=== PATIENT | female | born 1945 | race Caucasian/White ===

== ENCOUNTER → 2017-07-27 | Outpatient (CLI) | payer MEDICARE, OTHER | LOC: MC.RAD 09:39 | DX: Z12.31 Encounter for screening mammogram for malignant neoplasm of breast (principal) ==

== ENCOUNTER → 2018-08-05 | Outpatient (CLI) | payer MEDICARE, OTHER | LOC: MC.RAD 11:04 | DX: Z12.31 Encounter for screening mammogram for malignant neoplasm of breast (principal) ==

== ENCOUNTER → 2019-09-08 | Outpatient (CLI) | payer MEDICARE, OTHER | LOC: MC.RAD 10:32 | DX: Z12.31 Encounter for screening mammogram for malignant neoplasm of breast (principal) ==

== ENCOUNTER → 2020-09-10 | Outpatient (CLI) | payer MEDICARE | LOC: MC.RAD 09:38 | DX: Z12.31 Encounter for screening mammogram for malignant neoplasm of breast (principal) ==

== ENCOUNTER 2021-07-09 08:09 | Emergency (ER) | payer MEDICARE ==
[~2021-07-09] VITALS: Ht 167.6 cm; Wt 77.3 kg
[2021-07-09 08:14] VITALS: TEMP 99.1
[2021-07-09 08:46] LABS: COLLECTION METHOD CLEAN CATCH
[2021-07-09 08:53] LABS: HEMATOCRIT 40.2 % (37.0-47.0); HEMOGLOBIN 13.1 g/dl (12.5-16.0); MEAN CELL VOLUME 96 fl (80.0-100.0); MEAN CORPUSCULAR HEMOGLOBIN 31 pg (27.0-31.0); MEAN CORPUSCULAR HGB CONC 33 g/dl (33.0-37.0); PLATELET COUNT 243 K/mm3 (130-400); REDCELL DISTRIBUTION WIDTH-CV 12.7 % (11.5-14.5)
[2021-07-09 09:09] LABS: ALBUMIN 3.7 gm/dL (3.4-4.8); C-REACTIVE PROTEIN 2.97 mg/dL (0.00-0.50); CALCIUM 9.4 mg/dL (8.4-10.2); CREATININE, serum 0.8 mg/dL (0.57-1.11); POTASSIUM 3.8 mmol/L (3.5-4.5); TOTAL PROTEIN 6.4 gm/dL (6.2-8.1)
[2021-07-09 09:19] LABS: MUCOUS Present (NOT PRESENT); PH 5 (5-8); SQUAMOUS EPITHELIAL 0-2 /hpf (0-10); URINE APPEARANCE Clear (CLEAR/HAZY); URINE BACTERIA None Seen (NONE SEEN); URINE BILIRUBIN Negative (NEGATIVE); URINE BLOOD 1+ (NEGATIVE); URINE COLOR Amber (YELLOW); URINE GLUCOSE Negative (NEGATIVE); URINE KETONE Trace (NEGATIVE); URINE LEUKOCYTE ESTERASE Negative (NEGATIVE); URINE NITRATE Positive (NEGATIVE); URINE PROTEIN(semi-quant) Negative (NEGATIVE)
[2021-07-09] MEDS ORDERED: ZOFRAN ODT4 MG PO (09:36)
[2021-07-09] MEDS ORDERED: CEFTIN500 MG PO (09:36)
[2021-07-09 09:40] LABS: BAND 8 % (0-10); LYMPHOCYTE 1 % (20.0-51.0); NEUTROPHILS 89 % (42.0-75.2)
[2021-07-09 09:42] LABS: PLATELET ESTIMATE NORMAL (NORMAL)
[2021-07-09 09:49] LABS: BILIRUBIN,TOTAL 0.9 mg/dL (0.2-1.2)
[2021-07-09 10:32] VITALS: BP 138/82; PULSE 103
== END 2021-07-09 10:34 | disposition home or self-care (01) ==
LOC: COL.ER 08:09
PROVIDERS: Emergency Medicine
DX: N12 Tubulo-interstitial nephritis, not specified as acute or chronic (principal); D72.829 Elevated white blood cell count, unspecified; R79.82 Elevated C-reactive protein (CRP); I10 Essential (primary) hypertension
CPT/HCPCS: J0696; J1885; J2405; J7030

== ENCOUNTER → 2023-11-02 | Outpatient (CLI) | payer MEDICARE ==
[~2023-11-02] MED LIST: CEFTIN500 MG PO; ZOFRAN ODT4 MG PO
== END ==
LOC: MC.RAD 10:46
DX: Z12.31 Encounter for screening mammogram for malignant neoplasm of breast (principal)

== ENCOUNTER 2024-04-17 18:06 | Emergency (ER) | payer MEDICARE ==
[~2024-04-17] VITALS: Ht 167.6 cm; Wt 87.7 kg
[~2024-04-17 18:06] MED LIST changes: +ALDACTONE 25MG25 M1 PO; +ASPIRIN 81M81 MG/TA2 PO; +FIORICET 325 MG1 TA1 PO; +LIPITOR 40MG TA40 MG PO; +PLAVIX 75MG TAB75 MG PO; +TOPROL XL 25MG25 MG PO; +ZESTRIL 20MG TA20 MG PO
[2024-04-17 18:20] VITALS: TEMP 98.2
[2024-04-17 19:06] LABS: BASO % 0.5 % (0.0-2.0); EOS % 0.7 % (0.0-4.0); GRAN # 3.4 K/mm3 (1.4-6.5); GRAN % 60.8 % (42.2-75.2); HEMATOCRIT 42.6 % (37.0-47.0); HEMOGLOBIN 14.5 g/dl (12.5-16.0); LYMPH # 1.6 K/mm3 (1.2-3.4); LYMPH % 29.1 % (20.0-51.0); MEAN CELL VOLUME 93 fl (80.0-100.0); MEAN CORPUSCULAR HEMOGLOBIN 32 pg (27-31); MEAN CORPUSCULAR HGB CONC 34 g/dl (33.0-37.0); MEAN PLATELET VOLUME 9.7 fl (7.4-10.4); MONO # 0.5 K/mm3 (0.1-0.6); MONO % 8.7 % (1.7-9.3); PLATELET COUNT 272 K/mm3 (130-400); RED BLOOD COUNT 4.58 M/mm3 (4.10-5.30); REDCELL DISTRIBUTION WIDTH-CV 12.8 % (11.5-14.5)
[2024-04-17 19:17] LABS: PARTIAL THROMBOPLASTIN TIME 33.3 SECONDS (26.0-37.0)
[2024-04-17 19:23] LABS: ALANINE AMINOTRANSFERASE 24 U/L (0-55); ALBUMIN 3.9 g/dL (3.4-4.8); ALKALINE PHOSPHATASE 80 U/L (40-150); ANION GAP 14 mmol/L (7-16); AST,SGOT 19 U/L (5-34); BILIRUBIN,TOTAL 0.6 mg/dL (0.2-1.2); BLOOD UREA NITROGEN 10 mg/dL (10-20); CALCIUM 9.4 mg/dL (8.4-10.2); CHLORIDE 109 mEq/L (98-107); CREATININE, serum 0.78 mg/dL (0.57-1.11); GLUCOSE 113 mg/dL (70-99); MAGNESIUM 2.1 mg/dL (1.6-2.6); POTASSIUM 3.6 mEq/L (3.5-4.5); SODIUM 142 mEq/L (136-145); TOTAL PROTEIN 6.7 g/dl (6.2-8.1)
[2024-04-17 19:39] LABS: TROPONIN-I < 0.010 ng/mL (0.00-0.033)
[2024-04-17] MEDS ORDERED: Iohexol 300 - 100 ML VIAL IV ONE (19:43)
[2024-04-17] MEDS ORDERED: NS 50 ML IV ONE (19:44)
[2024-04-17] MEDS ORDERED: Lisinopril 20 MG TAB PO ONE (20:45)
[2024-04-17 22:20] VITALS: BP 187/94; PULSE 66
== END 2024-04-17 22:20 | disposition home or self-care (01) ==
LOC: COL.ER 18:06
PROVIDERS: Family Medicine
DX: I10 Essential (primary) hypertension (principal); R10.13 Epigastric pain; Z79.02 Long term (current) use of antithrombotics/antiplatelets
CPT/HCPCS: Q9967

== ENCOUNTER 2024-05-06 09:23 | Inpatient (IN) | payer MEDICARE ==
[~2024-05-06] VITALS: Ht 167.6 cm; Wt 81.5 kg
[2024-05-06] VITALS (492 sets, daily range): BP systolic 104–145; BP diastolic 61–94; PULSE 68–80; TEMP 97.7–97.8; O2SAT 85–99
[2024-05-06 09:56] LABS: BASO % 0.3 % (0.0-2.0); EOS % 0.7 % (0.0-4.0); GRAN # 4.3 K/mm3 (1.4-6.5); GRAN % 71.7 % (42.2-75.2); HEMOGLOBIN 15.2 g/dl (12.5-16.0); LYMPH # 1.2 K/mm3 (1.2-3.4); LYMPH % 19.3 % (20.0-51.0); MEAN CELL VOLUME 96 fl (80.0-100.0); MEAN CORPUSCULAR HEMOGLOBIN 32 pg (27-31); MEAN CORPUSCULAR HGB CONC 33 g/dl (33.0-37.0); MEAN PLATELET VOLUME 10.1 fl (7.4-10.4); MONO # 0.5 K/mm3 (0.1-0.6); MONO % 7.8 % (1.7-9.3); PLATELET COUNT 285 K/mm3 (130-400); REDCELL DISTRIBUTION WIDTH-CV 12.9 % (11.5-14.5)
[2024-05-06] MEDS ORDERED: dilTIAZem 25 MG/5 ML VIAL IV ONE (10:00)
[2024-05-06 10:01] LABS: PROTHROMBIN TIME 11.2 SECONDS (9.7-12.8)
[2024-05-06 10:04] LABS: PARTIAL THROMBOPLASTIN TIME 33.2 SECONDS (26.0-37.0)
[2024-05-06 10:07] LABS: ALBUMIN 3.6 g/dL (3.4-4.8); BILIRUBIN,TOTAL 0.6 mg/dL (0.2-1.2); CALCIUM 9.2 mg/dL (8.4-10.2); CREATININE, serum 0.84 mg/dL (0.57-1.11); POTASSIUM 3.7 mEq/L (3.5-4.5); TOTAL PROTEIN 6.3 g/dl (6.2-8.1)
[2024-05-06 10:13] LABS: TROPONIN-I 0.01 ng/mL (0.00-0.033)
[2024-05-06] MEDS ORDERED: ZESTRIL 10MG10 MG PO (14:34)
[2024-05-06] MEDS ORDERED: NORVASC 5MG5 MG/TAB PO (14:35)
[2024-05-06] MEDS ORDERED: XALATAN EYE DROPS OU (14:36)
[2024-05-06] MEDS ORDERED: Acetamin/Butalbital/Caffeine 325-50-40 MG TAB PO PRN (14:45)
--- NOTE | 2024-05-06 14:46 | NUR ---
Pt arrived to the floor and transferred via stretcher to bathroom then back to bed. Gait is stable. Assessment completed. Pt deines any pain or SOB. Pt oriented to room. Pt and pt updated on ICU policies. Both verbalized understanding. Dr. Coughlin paged and updated about pt. No new orders. Pt has cardizem infusing at 5mg/hr. HR is controlled in the 70s. Pt denies any other needs at this time. Call light within reach. Will continue with POC.
--- NOTE | 2024-05-06 19:05 | NUR ---
THIS NURSE RECIEVED REPORT FROM PRASHANTH MERCADO. PATIENT IS CURRENTLY WATCHING TV IN BED, WITH AT BEDSIDE. VITAL SIGNS WNL. 20 G TO THE RIGHT AC WITH CARDIZEM RUNNING AT 5 ML/HR. PATIENT STATED NO CONCERNS AT THIS POINT. BED IS IN LOW POSITION. CALL LIGHT IS IN THE PATIENT'S REACH.
[2024-05-06] MEDS ORDERED: Latanoprost 0.005% Ophth Soln 2.5 ML BOTTLE OP SCH (21:00)
[2024-05-06] MEDS ORDERED: Atorvastatin 40 MG TAB PO SCH (21:00)
[2024-05-06] MEDS ORDERED: amLODIPine 5 MG TAB PO SCH (21:00)
[2024-05-07] VITALS (1031 sets, daily range): BP systolic 95–123; BP diastolic 54–98; PULSE 62–112; TEMP 97.6–98.1; O2SAT 63–99
--- NOTE | 2024-05-07 01:21 | NUR ---
PATIENT HAS BEEN HAVING SOFT PRESSURES, AROUND 90'S OVER 50'S. PATIENT HAS STAYED RATE CONTROLLED WITH A HEARTRATE BETWEEN 60-70'S. I TITRATED THE CARDIZEM RUNNING, DOWN, TO 0 MG/HR AT THIS TIME. WILL CONTINUE TO ASSESS THE PATIENT AND MONITOR VITAL SIGNS. BED IN LOW POSITION, CALL LIGHT WITHIN THE PATIENT'S REACH.
--- NOTE | 2024-05-07 04:12 | NUR ---
PATIENT STILL OFF OF CARDIZEM DRIP. PATIENT MAINTAINING A RATE CONTROLLED HEART RATE OF AROUND 60-70'S. PATIENT'S BLOOD PRESSURE HAS WENT UP TOO 100'S OVER 60'S. PATIENT STILL SLEEPING COMFORTABLY. NO OTHER CONCERNS NOTED AT THIS TIME. BED IN LOW POSITION AND CALL LIGHT WITHIN REACH.
--- NOTE | 2024-05-07 08:48 | NUR ---
PATIENT A&OX4 AND HAS A PLEASANT DEMEANOR. PATIENT HAD INT IN R AC THAT HAD PREVIOUSLY BEEN RUNNING CARDIZEM BUT WAS NO LONGER. THE SITE WAS BLEEING AND MAKING THE PATIENT UNCOMFORTABLE. DC'D R AC SITE AND STARTED A NEW INT IN RH W/ 22 GAUGE CATHETER IN ONE ATTEMPT. PATIENT HAS NO C/O OF PAIN IN THE AREA DURING OR AFTER THE INITIATION. CARIDIZEM DRIP TURNED BACK ON D/T HEART RATE AND RHYTHM BEING ABNORMAL. NORMAL S1 AND S2 AUSCULTATED, WITH EXTRA SOUNDS INBETWEEN S1 AND S2. PATIENT REMAINS IN AFIB, BUT IS CURRENTLY RATE CONTROLLED. PATIENT UP TO THE RESTROOM, GAIT WAS STEADY, HAS NO C/O DIZZINESS UPON STANDING AND AMBULATING. PATIENT IS BACK TO BED WITH CALL LIGHT IN REACH AND BED IN LOWEST POSITION
[2024-05-07] MEDS ORDERED: Lisinopril 10 MG TAB PO SCH (09:00)
[2024-05-07] MEDS ORDERED: *Potassium Replacement Protocol MC SCH (09:45)
[2024-05-07] MEDS ORDERED: Potassium Bicarbonate/Citrate 20 MEQ Effervescent TAB PO SCH (10:00)
--- NOTE | 2024-05-07 11:00 | NUR ---
SW met with patient to complete intake/discharge planning. Patient provides she resides in [facility] with her spouse Tadeo Asencio [phone]. Patient provides she is independent with ADLs, does not utilize DME nor home health services at this time. PCP is Dr. Reddy, and pharmacy utilized is [facility]. Patient provides she does not have anyone appointed as DPOA/HC at this time, but she and spouse are in communication about getting a grad intern to completed DPOA and Living Will and would prefer to wait to complete that way. Patient plans to return to her home upon discharge. Patient provides she has no concerns or questions about care. SW will continue to follow. Discharge plan: home
[2024-05-07] MEDS ORDERED: Apixaban 5 MG TABLET PO SCH (12:43)
[2024-05-07 13:30] LABS: BASO % 0.7 % (0.0-2.0); EOS # 0.1 K/mm3 (0.0-0.7); EOS % 1.1 % (0.0-4.0); GRAN # 3.7 K/mm3 (1.4-6.5); HEMATOCRIT 42.3 % (37.0-47.0); HEMOGLOBIN 14.2 g/dl (12.5-16.0); LYMPH # 1.2 K/mm3 (1.2-3.4); LYMPH % 21.8 % (20.0-51.0); MEAN CELL VOLUME 94 fl (80.0-100.0); MEAN CORPUSCULAR HEMOGLOBIN 32 pg (27-31); MEAN CORPUSCULAR HGB CONC 34 g/dl (33.0-37.0); MEAN PLATELET VOLUME 9.9 fl (7.4-10.4); MONO # 0.5 K/mm3 (0.1-0.6); MONO % 8.4 % (1.7-9.3); PLATELET COUNT 274 K/mm3 (130-400); RED BLOOD COUNT 4.51 M/mm3 (4.10-5.30); REDCELL DISTRIBUTION WIDTH-CV 13.2 % (11.5-14.5)
[2024-05-07 13:32] LABS: INR 1.1 (0.8-3.0)
[2024-05-07 13:51] LABS: CALCIUM 8.4 mg/dL (8.4-10.2); CREATININE, serum 0.82 mg/dL (0.57-1.11); POTASSIUM 4.3 mEq/L (3.5-4.5)
--- NOTE | 2024-05-07 20:00 | NUR ---
Pt resting quietly and comfortably in bed. VSS. IV infusing to right hand IV with cardiazem without difficulty or complications. Pt ambulated to toilet via SBA, tolerated well. Evening medications administered without difficulty. Assessment completed without difficulty. Pt is to be NPO at midnight and is cooperative with plan for tomorrow. Pt does not have any further questions or complaints at this time. at bedside and planning to leave shortly. Pt and very pleasant, polite, and enjoyable to talk to.
[2024-05-08] VITALS (1220 sets, daily range): BP systolic 105–139; BP diastolic 61–75; PULSE 56–73; TEMP 97.6–98; O2SAT 84–100
--- NOTE | 2024-05-08 07:23 | NUR ---
PT LAYING IN BED UPON ENTERING AND DENIES NEEDS. CARDIZEM AT 5MG/HR IN RIGHT HAND. CURRENTLY IN AFIB, RATE CONTROLLED. PT UPDATED ON PLAN OF CARE AND VERBALIZED UNDERSTANDING. NPO FOR PROCEDURES. BED IN LOWEST POSITION, CALL LIGHT IN REACH.
[2024-05-08] MEDS ORDERED: Lidocaine PF 2% (20 MG/ML) 5 ML VIAL ONE (09:54)
[2024-05-08] MEDS ORDERED: NS 1,000 ML IV SCH (10:15)
--- NOTE | 2024-05-08 10:23 | NUR ---
BENITA/Cardioversion completed at this time. Time out completed at 1023. Procedure concluded at 1038. Pt tolerated well. Post-op checks/vitals in progress. Pt now in sinus rhythm with a rate in the upper 50's. Pt's updated and now at the bedside.
[2024-05-08] MEDS ORDERED: Heparin 5,000 UNITS/ML 1 ML VIAL IV PRN (11:15)
[2024-05-08] MEDS ORDERED: Heparin 5,000 UNITS/ML 1 ML VIAL IV ONE (11:15)
[2024-05-08] MEDS ORDERED: Heparin/D5W 250 ML IV SCH (11:15)
[2024-05-08 12:31] LABS: PARTIAL THROMBOPLASTIN TIME 34.9 SECONDS (26.0-37.0)
--- NOTE | 2024-05-08 18:00 | NUR ---
PT LAYING IN BED UPON ENTERING. HEPARIN RUNNING AT 15 MLS/HR PER PROTOCOL. PT DENIES NEEDS. BED IN LOWEST POSITION, CALL LIGHT IN REACH.
--- NOTE | 2024-05-08 19:05 | NUR ---
Received report from PRASHANTH Lora. Pt's vitals are stable at this time with pt in SR. Pt is on Heparin drip at this time. Pt's is at bedside at this time. Pt's bed is in low position and has call light within reach. Will continue with pt care.
[2024-05-09] VITALS (521 sets, daily range): BP systolic 109–159; BP diastolic 60–82; PULSE 60–62; TEMP 97.8–98; O2SAT 86–99
--- NOTE | 2024-05-09 06:28 | NUR ---
Pt had an uneventful night. Vitals were stable throughout the night. Pt on heparin drip at this time. Pt resting in bed with call light within reach and bed in low position. Will give report to day shift nurse.
--- NOTE | 2024-05-09 07:30 | NUR ---
Awake and resting in bed; alert and oriented X 4. Denies any concerns or complaints at this time. Assisted up to use the bathroom. Gait steady. Returned to bed and call light left within reach.
[2024-05-09 08:43] LABS: BASO # 0.1 K/mm3 (0.0-0.2); BASO % 0.9 % (0.0-2.0); EOS # 0.1 K/mm3 (0.0-0.7); EOS % 1.7 % (0.0-4.0); GRAN # 4.1 K/mm3 (1.4-6.5); HEMATOCRIT 39.8 % (37.0-47.0); HEMOGLOBIN 13.6 g/dl (12.5-16.0); LYMPH # 1.1 K/mm3 (1.2-3.4); LYMPH % 18.6 % (20.0-51.0); MEAN CELL VOLUME 93 fl (80.0-100.0); MEAN CORPUSCULAR HEMOGLOBIN 32 pg (27-31); MEAN CORPUSCULAR HGB CONC 34 g/dl (33.0-37.0); MONO # 0.5 K/mm3 (0.1-0.6); MONO % 8.6 % (1.7-9.3); PLATELET COUNT 256 K/mm3 (130-400); RED BLOOD COUNT 4.26 M/mm3 (4.10-5.30); REDCELL DISTRIBUTION WIDTH-CV 12.8 % (11.5-14.5)
[2024-05-09 09:05] LABS: CALCIUM 9.1 mg/dL (8.4-10.2); CREATININE, serum 0.7 mg/dL (0.57-1.11); POTASSIUM 4.1 mEq/L (3.5-4.5)
[2024-05-09] MEDS ORDERED: TAMBOCOR 1100 MG/TAB PO (12:18)
[2024-05-09] MEDS ORDERED: ELIQUIS 5MG PO (12:20)
--- NOTE | 2024-05-09 17:24 | NUR ---
Patient discharged after a loop recorder was placed. Peripheral IV removed without complications. Discharge paperwork and education reviewed with patient to include medications, post-precedure incision care, and follow up appointments. Patient has been escorted to POV via wheelchair with belongings and family.
== END 2024-05-09 13:53 | disposition home or self-care (01) | DRG 310 ==
LOC: COL.ER 09:23 → ICU 12:55
PROVIDERS: Emergency Medicine; Internal Medicine Cardiovascular Disease; ADMIT Internal Medicine
DX: I48.0 Paroxysmal atrial fibrillation (principal); Z79.82 Long term (current) use of aspirin; Z79.02 Long term (current) use of antithrombotics/antiplatelets
CPT/HCPCS: J1644; J1650; J2704

== ENCOUNTER 2024-05-28 08:46 | Emergency (ER) | payer MEDICARE ==
[~2024-05-28] VITALS: Ht 167.6 cm; Wt 84.1 kg
[~2024-05-28 08:46] MED LIST changes: +ELIQUIS 5MG PO; +NORVASC 5MG5 MG/TAB PO; +TAMBOCOR 1100 MG/TAB PO; +XALATAN EYE DROPS OU; +ZESTRIL 10MG10 MG PO
[2024-05-28 08:52] VITALS: TEMP 97.8
[2024-05-28 09:27] LABS: BASO # 0.1 K/mm3 (0.0-0.2); EOS # 0.1 K/mm3 (0.0-0.7); EOS % 2.1 % (0.0-4.0); GRAN # 3.4 K/mm3 (1.4-6.5); GRAN % 66.1 % (42.2-75.2); HEMOGLOBIN 14.8 g/dl (12.5-16.0); LYMPH # 1.1 K/mm3 (1.2-3.4); LYMPH % 21.9 % (20.0-51.0); MEAN CELL VOLUME 94 fl (80.0-100.0); MEAN CORPUSCULAR HEMOGLOBIN 32 pg (27-31); MEAN CORPUSCULAR HGB CONC 34 g/dl (33.0-37.0); MONO # 0.5 K/mm3 (0.1-0.6); MONO % 8.7 % (1.7-9.3); PLATELET COUNT 283 K/mm3 (130-400); RED BLOOD COUNT 4.59 M/mm3 (4.10-5.30); REDCELL DISTRIBUTION WIDTH-CV 12.4 % (11.5-14.5)
[2024-05-28 09:49] LABS: ALANINE AMINOTRANSFERASE 18 U/L (0-55); ALBUMIN 3.8 g/dL (3.4-4.8); ALKALINE PHOSPHATASE 85 U/L (40-150); ANION GAP 12 mmol/L (7-16); AST,SGOT 16 U/L (5-34); BILIRUBIN,TOTAL 0.4 mg/dL (0.2-1.2); BLOOD UREA NITROGEN 10 mg/dL (10-20); CALCIUM 9.3 mg/dL (8.4-10.2); CHLORIDE 108 mEq/L (98-107); CREATININE, serum 0.81 mg/dL (0.57-1.11); GLUCOSE 115 mg/dL (70-99); POTASSIUM 3.8 mEq/L (3.5-4.5); SODIUM 141 mEq/L (136-145); TOTAL PROTEIN 6.4 g/dl (6.2-8.1)
[2024-05-28 10:13] LABS: TROPONIN-I < 0.010 ng/mL (0.00-0.033)
[2024-05-28 11:47] VITALS: BP 186/89; PULSE 57
== END 2024-05-28 11:47 | disposition home or self-care (01) ==
LOC: COL.ER 08:46
PROVIDERS: Personal Emergency Response Attendant
DX: I48.91 Unspecified atrial fibrillation (principal); R06.00 Dyspnea, unspecified; Z79.01 Long term (current) use of anticoagulants; Z79.899 Other long term (current) drug therapy

== ENCOUNTER → 2024-06-20 | Outpatient (CLI) | payer MEDICARE | LOC: COL.RAD 12:55 | DX: I63.81 Other cerebral infarction due to occlusion or stenosis of small artery (principal) ==